=== PATIENT | female | born 1955 | race Hispanic/Latino ===

== ENCOUNTER → 2017-10-07 | Outpatient (CLI) | payer OTHER ==
[~2017-10-07] MED LIST: AMLO10TA2 PO; ASPI-1181 PO; AZIT250T9 PO; FERR324T4 PO; FURO40TA5 PO; GLIP10TA9 PO; HYDR-2132 PO; HYDR-4154 PO; LEVO50TA11 PO; LOSA100T29 PO; LOSA1TAB37 PO; METF10004 PO; NIAC500T76 PO; OSEL75CA17 PO; PANT40TA25 PO; REGADENOSON 0.4 MG/5 ML PF SYG IVP SCH; RIVA10TA PO; SIMV20TA6 PO; SITA100T12 PO; VITAMIN B12 SL; [UNRECOGNIZED DRUG - CODE] PO
== END | disposition home or self-care (01) ==
LOC: SHCH 08:46
PROVIDERS: ATTEND Internal Medicine Cardiovascular Disease
DX: I25.10 Atherosclerotic heart disease of native coronary artery without angina pectoris (principal)
CPT/HCPCS: 78452; 93017; 96374; A9500 ×2; J2785

== ENCOUNTER → 2017-10-18 | Outpatient (CLI) | payer OTHER ==
[~2017-10-18] MED LIST changes: -REGADENOSON 0.4 MG/5 ML PF SYG IVP SCH
== END | disposition home or self-care (01) ==
LOC: RAH 13:27
PROVIDERS: ATTEND Internal Medicine Cardiovascular Disease
DX: I51.7 Cardiomegaly (principal); M47.895 Other spondylosis, thoracolumbar region; R91.8 Other nonspecific abnormal finding of lung field
CPT/HCPCS: 71046; 78579; 78580; A9540; A9558

== ENCOUNTER 2018-01-02 22:35 | Emergency (ER) | payer OTHER ==
[~2018-01-02 22:35] MED LIST changes: -AMLO10TA2 PO; -ASPI-1181 PO; -AZIT250T9 PO; -FERR324T4 PO; -FURO40TA5 PO; -HYDR-4154 PO; -LEVO50TA11 PO; -LOSA100T29 PO; -OSEL75CA17 PO; -PANT40TA25 PO; -VITAMIN B12 SL
[2018-01-02 23:04] LABS: APPEARANCE,URINE Cloudy (CLEAR); BILIRUBIN,URINE Negative (NEGATIVE); COLOR,URINE Yellow (YELLOW); GLUCOSE, URINE (UA) 250 mg/dL (NEGATIVE); KETONES,URINE Negative (NEGATIVE); LEUKOCYTE ESTERASE ,URINE Trace (NEGATIVE); NITRATE,URINE Negative (NEGATIVE); OCCULT BLOOD,URINE Moderate (NEGATIVE); PH,URINE 6.5 (5.0-8.0); PROTEIN,URINE >=1000 (NEGATIVE)
[2018-01-02 23:15] LABS: BACTERIA,URINE Moderate /HPF (None Seen); MUCUS,URINE Moderate LPF (None Seen); SQUAMOUS EPITHELIAL CELL,UR Many /HPF (0-2)
[2018-01-02 23:16] LABS: AMORPHOUS SEDIMENT,UR Moderate /LPF (None Seen); CALCIUM OXALATE CRYSTALS,UR Rare /LPF (None Seen)
[2018-01-02] MEDS ORDERED: OSELTAMIVIR PHOSPHATE 75 MG CAP ONE (23:23)
== END 2018-01-02 23:33 | disposition home or self-care (01) ==
LOC: EDH 22:35
DX: J10.1 Influenza due to other identified influenza virus with other respiratory manifestations (principal); R50.81 Fever presenting with conditions classified elsewhere; I10 Essential (primary) hypertension; E11.9 Type 2 diabetes mellitus without complications; I25.10 Atherosclerotic heart disease of native coronary artery without angina pectoris; E78.5 Hyperlipidemia, unspecified; Z91.041 Radiographic dye allergy status
CPT/HCPCS: 81001; 87804; 87880

== ENCOUNTER 2018-01-04 07:00 | Emergency (ER) | payer OTHER ==
[2018-01-04] MEDS ORDERED: DEXAMETHASONE SOD PHOSPHATE 10MG/ML 1ML VIAL ONE (07:21)
[2018-01-04] MEDS ORDERED: LIDOCAINE HCL-MPF 1% 2ML VIAL ONE (07:21)
[2018-01-04] MEDS ORDERED: CEFTRIAXONE SODIUM 1 GM ONE (07:22)
[2018-01-04] MEDS ORDERED: IPRATROPIUM/ALBUTEROL SULFATE 3 ML SOLUTION IH ONE (07:31)
== END 2018-01-04 08:36 | disposition home or self-care (01) ==
LOC: EDH 07:00
DX: J20.9 Acute bronchitis, unspecified (principal); J10.1 Influenza due to other identified influenza virus with other respiratory manifestations; I10 Essential (primary) hypertension; D64.9 Anemia, unspecified; I25.10 Atherosclerotic heart disease of native coronary artery without angina pectoris; E78.5 Hyperlipidemia, unspecified; Z98.890 Other specified postprocedural states; Z88.8 Allergy status to other drugs, medicaments and biological substances
CPT/HCPCS: 71046; 94640; 96372 ×2; 99284; J0696; J1100; J3490

== ENCOUNTER 2018-01-06 19:36 | Inpatient (IN) | payer OTHER ==
[~2018-01-06] VITALS: Ht 154.9 cm; Wt 110.7 kg
[2018-01-06 20:21] LABS: BASOPHILS % (AUTO) 0.4 % (0.0-5.0); EOSINOPHILS % (AUTO) 1.7 % (0.0-8.0); HEMATOCRIT 26.5 % (36-48); LYMPHOCYTES % (AUTO) 21.5 % (21.0-51.0); MEAN CORPUSCULAR HEMOGLOBIN 28.7 pg (27.0-33.0); MEAN CORPUSCULAR HGB CONC 35.2 g/dL (32.0-36.0); MEAN CORPUSCULAR VOLUME 81.6 fL (79-99); MONOCYTES % (AUTO) 9.5 % (3.0-13.0); NEUTROPHILS % (AUTO) 66.9 % (40.0-77.0); NUCLEATED RED BLOOD CELLS 0.1 % (0.0-0.19); PLATELET COUNT (AUTO) 225 K/uL (130-400); RED BLOOD CELL COUNT(AUTO) 3.25 MIL/uL (4.00-5.50); RED CELL DISTRIBUTION WIDTH 16.9 % (11.0-15.5); WHITE BLOOD COUNT (AUTO) 8.7 K/uL (4.8-10.8)
[2018-01-06 20:26] LABS: APPEARANCE,URINE Clear (CLEAR); BILIRUBIN,URINE Negative (NEGATIVE); COLOR,URINE Yellow (YELLOW); GLUCOSE, URINE (UA) 500 mg/dL (NEGATIVE); KETONES,URINE Negative (NEGATIVE); LEUKOCYTE ESTERASE ,URINE Negative (NEGATIVE); NITRATE,URINE Negative (NEGATIVE); OCCULT BLOOD,URINE Trace (NEGATIVE); PROTEIN,URINE >=1000 (NEGATIVE); UROBILINOGEN,URINE 0.2 mg/dL (0.2-1.0)
[2018-01-06 20:34] LABS: CREATININE 2.5 mg/dL (0.5-1.5); POTASSIUM 3.9 mmol/L (3.5-5.1)
[2018-01-06 20:38] LABS: ALBUMIN 2.8 g/dL (3.5-5.0); BILIRUBIN,TOTAL 0.2 mg/dL (0.2-1.0); TOTAL PROTEIN, SERUM 7.9 g/dL (6.0-8.3)
[2018-01-06 20:46] LABS: AMYLASE 46 U/L (25-115); LIPASE 166 U/L (114-286)
[2018-01-06 20:51] LABS: BACTERIA,URINE Few /HPF (None Seen); SQUAMOUS EPITHELIAL CELL,UR 0-2 /HPF (0-2)
[2018-01-07] VITALS (7 sets, daily range): BP systolic 146–179; BP diastolic 59–83
[2018-01-07] MEDS ORDERED: METHYLPREDNISOLONE SOD SUCC 125MG/2ML VIAL ONE (00:37)
[2018-01-07] MEDS ORDERED: HYDRALAZINE HCL 20 MG/ML VIAL IV PRN (00:45)
[2018-01-07] MEDS: INSULIN HUMULIN R 100 UNIT/ML 3ML SQ SCH ×4 (00:45→18:45)
[2018-01-07] MEDS: METHYLPREDNISOLONE SOD SUCC 125MG/2ML VIAL IV SCH (00:45)
[2018-01-07] MEDS ORDERED: ONDANSETRON HCL 4 MG/2 ML VIAL IV PRN (00:45)
[2018-01-07] MEDS ORDERED: MORPHINE SULFATE 2 MG/ML 1ML SYG IV PRN (00:45)
[2018-01-07] MEDS ORDERED: FERR324T4 PO (01:28)
[2018-01-07] MEDS ORDERED: LEVO50TA11 PO (01:28)
[2018-01-07] MEDS ORDERED: OSEL75CA17 PO (01:28)
[2018-01-07] MEDS ORDERED: LOSA100T29 PO (01:28)
[2018-01-07] MEDS ORDERED: AZIT250T9 PO (01:28)
[2018-01-07] MEDS ORDERED: FURO40TA5 PO (01:28)
[2018-01-07] MEDS ORDERED: AMLO10TA2 PO (01:32)
[2018-01-07] MEDS ORDERED: ASPI-1181 PO (01:32)
[2018-01-07] MEDS ORDERED: HYDR-4154 PO (01:35)
[2018-01-07] MEDS ORDERED: PANT40TA25 PO (01:35)
[2018-01-07] MEDS ORDERED: VITAMIN B12 SL (01:38)
[2018-01-07] MEDS: SODIUM CHLORIDE 0.9% 1000ML 1,000 ML IV SCH ×2 (03:07→09:52)
[2018-01-07] MEDS: LEVOFLOXACIN 500 MG/D5W 100 ML 100 ML IV SCH (03:08)
[2018-01-07] MEDS: IPRATROPIUM/ALBUTEROL SULFATE 3 ML SOLUTION IH SCH ×3 (06:28→18:43)
[2018-01-07] MEDS ORDERED: METHYLPREDNISOLONE SOD SUCC 125MG/2ML VIAL IVP SCH (08:00)
[2018-01-07] MEDS ORDERED: PANTOPRAZOLE 40 MG/VIAL IVP SCH (09:00)
[2018-01-07] MEDS: CYANOCOBALAMIN (VITAMIN B-12) 1,000 MCG TABLET PO SCH (09:45)
[2018-01-07] MEDS ORDERED: COMPOUND PO MISCELLANEOUS 1 EACH MISC MISC PRN (09:45)
[2018-01-07] MEDS: LINAGLIPTIN 5 MG TABLET PO SCH (09:45)
[2018-01-07] MEDS: AMLODIPINE BESYLATE 5 MG TAB PO SCH (09:45)
[2018-01-07 09:50] LABS: HEMATOCRIT 28.4 % (36-48); MEAN CORPUSCULAR HEMOGLOBIN 27.4 pg (27.0-33.0); MEAN CORPUSCULAR HGB CONC 33.7 g/dL (32.0-36.0); MEAN CORPUSCULAR VOLUME 81.2 fL (79-99); PLATELET COUNT (AUTO) 204 K/uL (130-400); RED CELL DISTRIBUTION WIDTH 17.1 % (11.0-15.5); WHITE BLOOD COUNT (AUTO) 4.8 K/uL (4.8-10.8)
[2018-01-07 10:00] LABS: CREATININE 2.4 mg/dL (0.5-1.5); POTASSIUM 4.6 mmol/L (3.5-5.1)
[2018-01-07] MEDS: FERROUS SULFATE 325 MG TABLET.DR PO SCH (21:00)
[2018-01-07] MEDS ORDERED: OSELTAMIVIR PHOSPHATE 75 MG CAP PO SCH (21:00)
[2018-01-07] MEDS: HYDRALAZINE HCL 25 MG TABLET PO SCH (21:00)
[2018-01-08] MEDS: IPRATROPIUM/ALBUTEROL SULFATE 3 ML SOLUTION IH SCH ×4 (00:05→18:23)
[2018-01-08] MEDS: METHYLPREDNISOLONE SOD SUCC 125MG/2ML VIAL IV SCH (00:45)
[2018-01-08] MEDS: INSULIN HUMULIN R 100 UNIT/ML 3ML SQ SCH ×4 (00:45→16:36)
[2018-01-08] MEDS: LEVOFLOXACIN 500 MG/D5W 100 ML 100 ML IV SCH (00:49)
[2018-01-08 04:00] VITALS: BP 155/78
[2018-01-08] MEDS: SODIUM CHLORIDE 0.9% 1000ML 1,000 ML IV SCH (07:39)
[2018-01-08 08:23] VITALS: BP 150/74
[2018-01-08] MEDS ORDERED: AZITHROMYCIN 250 MG TABLET PO SCH (09:00)
[2018-01-08] MEDS ORDERED: OSELTAMIVIR SUSP 15 MG/ML (6 CAPS/29ML) PO SCH ×2 (09:00)
[2018-01-08 11:45] VITALS: BP 140/65
[2018-01-08 15:29] VITALS: BP 155/59
[2018-01-08] MEDS: LINAGLIPTIN 5 MG TABLET PO SCH (16:24)
[2018-01-08] MEDS: FERROUS SULFATE 325 MG TABLET.DR PO SCH ×2 (16:24→20:41)
[2018-01-08] MEDS: LEVOTHYROXINE 50 MCG TABLET PO SCH (16:25)
[2018-01-08] MEDS: PANTOPRAZOLE SODIUM 40 MG TABLET.DR PO SCH (16:25)
[2018-01-08] MEDS: CYANOCOBALAMIN (VITAMIN B-12) 1,000 MCG TABLET PO SCH (16:25)
[2018-01-08] MEDS: FUROSEMIDE 40 MG TABLET PO SCH (16:25)
[2018-01-08] MEDS: AMLODIPINE BESYLATE 5 MG TAB PO SCH (16:25)
[2018-01-08] MEDS: LOSARTAN 100 MG TABLET PO SCH (16:25)
[2018-01-08] MEDS: HYDRALAZINE HCL 25 MG TABLET PO SCH ×2 (16:26→20:41)
[2018-01-08] MEDS: ASPIRIN 81 MG EC TAB PO SCH (16:26)
[2018-01-08 19:51] VITALS: BP 137/80
[2018-01-08] MEDS ORDERED: PHARMACY COMMUNICATION MISC SCH (20:45)
[2018-01-08] MEDS: INSULIN R PO SS1 SQ SCH (21:00)
[2018-01-08 23:26] VITALS: BP 140/78
[2018-01-09] MEDS: LEVOFLOXACIN 500 MG/D5W 100 ML 100 ML IV SCH (00:46)
[2018-01-09] MEDS: IPRATROPIUM/ALBUTEROL SULFATE 3 ML SOLUTION IH SCH ×5 (01:23→23:01)
[2018-01-09 04:24] VITALS: BP 142/60
[2018-01-09] MEDS: INSULIN R PO SS1 SQ SCH ×4 (05:50→20:32)
[2018-01-09 07:59] VITALS: BP 137/64
[2018-01-09] MEDS: HYDRALAZINE HCL 25 MG TABLET PO SCH ×2 (10:19→20:10)
[2018-01-09] MEDS: CYANOCOBALAMIN (VITAMIN B-12) 1,000 MCG TABLET PO SCH (10:20)
[2018-01-09] MEDS: FERROUS SULFATE 325 MG TABLET.DR PO SCH ×2 (10:20→20:10)
[2018-01-09] MEDS: LINAGLIPTIN 5 MG TABLET PO SCH (10:20)
[2018-01-09] MEDS: PANTOPRAZOLE SODIUM 40 MG TABLET.DR PO SCH (10:20)
[2018-01-09] MEDS: AMLODIPINE BESYLATE 5 MG TAB PO SCH (10:20)
[2018-01-09] MEDS: FUROSEMIDE 40 MG TABLET PO SCH (10:20)
[2018-01-09] MEDS: LOSARTAN 100 MG TABLET PO SCH (10:20)
[2018-01-09] MEDS: ASPIRIN 81 MG EC TAB PO SCH (10:20)
[2018-01-09] MEDS: LEVOTHYROXINE 50 MCG TABLET PO SCH (10:21)
[2018-01-09 10:37] LABS: HEMATOCRIT 27.9 % (36-48); MEAN CORPUSCULAR HEMOGLOBIN 27.7 pg (27.0-33.0); MEAN CORPUSCULAR HGB CONC 33.9 g/dL (32.0-36.0); MEAN CORPUSCULAR VOLUME 81.7 fL (79-99); PLATELET COUNT (AUTO) 228 K/uL (130-400); RED BLOOD CELL COUNT(AUTO) 3.41 MIL/uL (4.00-5.50); RED CELL DISTRIBUTION WIDTH 16.7 % (11.0-15.5); WHITE BLOOD COUNT (AUTO) 8.3 K/uL (4.8-10.8)
[2018-01-09 11:06] VITALS: BP 156/83
[2018-01-09 16:23] VITALS: BP 146/69
[2018-01-09 19:40] VITALS: BP 146/75
[2018-01-10] VITALS (22 sets, daily range): BP systolic 92–179; BP diastolic 54–88
[2018-01-10] MEDS: LEVOFLOXACIN 500 MG/D5W 100 ML 100 ML IV SCH (00:04)
[2018-01-10] MEDS: SODIUM CHLORIDE 0.9% 1000ML 1,000 ML IV SCH ×2 (00:04→14:08)
[2018-01-10] MEDS: IPRATROPIUM/ALBUTEROL SULFATE 3 ML SOLUTION IH SCH ×4 (06:22→23:22)
[2018-01-10] MEDS: INSULIN R PO SS1 SQ SCH ×4 (06:54→22:07)
[2018-01-10] MEDS: FERROUS SULFATE 325 MG TABLET.DR PO SCH ×2 (09:00→22:09)
[2018-01-10] MEDS: PANTOPRAZOLE SODIUM 40 MG TABLET.DR PO SCH (09:00)
[2018-01-10] MEDS: AMLODIPINE BESYLATE 5 MG TAB PO SCH (09:00)
[2018-01-10] MEDS: FUROSEMIDE 40 MG TABLET PO SCH (09:00)
[2018-01-10] MEDS: LINAGLIPTIN 5 MG TABLET PO SCH (09:00)
[2018-01-10] MEDS: HYDRALAZINE HCL 25 MG TABLET PO SCH ×2 (09:00→22:09)
[2018-01-10] MEDS: CYANOCOBALAMIN (VITAMIN B-12) 1,000 MCG TABLET PO SCH (09:00)
[2018-01-10] MEDS: LOSARTAN 100 MG TABLET PO SCH (09:00)
[2018-01-10] MEDS: LEVOTHYROXINE 50 MCG TABLET PO SCH (09:00)
[2018-01-10] MEDS: ASPIRIN 81 MG EC TAB PO SCH (09:00)
[2018-01-10] MEDS ORDERED: GLYCOPYRROLATE 0.2 MG/ML 5 ML VIAL ONE (14:16)
[2018-01-10] MEDS ORDERED: LIDOCAINE PF 2% 5ML ABBOJECT ONE (14:16)
[2018-01-10] MEDS ORDERED: DEXAMETHASONE SOD PHOSPHATE 10MG/ML 1ML VIAL ONE (14:16)
[2018-01-10] MEDS ORDERED: MIDAZOLAM HCL 1 MG/ML 2ML VIAL ONE (14:17)
[2018-01-10] MEDS ORDERED: PROPOFOL 10 MG/ML 20ML VIAL IV ONE (14:17)
[2018-01-10] MEDS ORDERED: FENTANYL CITRATE PF 50 MCG/1 ML 2ML VIAL ONE (14:18)
[2018-01-10] MEDS ORDERED: BUPIVACAINE/EPI/PF 0.25% 30ML VIAL IJ ONE (14:50)
[2018-01-10] MEDS ORDERED: MEPERIDINE-PF 25 MG/ML SYG ONE (16:50)
[2018-01-11 00:15] VITALS: BP 154/68
[2018-01-11 04:15] VITALS: BP 156/76
[2018-01-11] MEDS: IPRATROPIUM/ALBUTEROL SULFATE 3 ML SOLUTION IH SCH ×2 (06:34→11:14)
[2018-01-11] MEDS: INSULIN R PO SS1 SQ SCH ×2 (06:43→11:30)
[2018-01-11 08:32] VITALS: BP 174/83
[2018-01-11] MEDS: FUROSEMIDE 40 MG TABLET PO SCH (09:12)
[2018-01-11] MEDS: LOSARTAN 100 MG TABLET PO SCH (09:12)
[2018-01-11] MEDS: AMLODIPINE BESYLATE 5 MG TAB PO SCH (09:12)
[2018-01-11] MEDS: LINAGLIPTIN 5 MG TABLET PO SCH (09:12)
[2018-01-11] MEDS: LEVOTHYROXINE 50 MCG TABLET PO SCH (09:13)
[2018-01-11] MEDS: FERROUS SULFATE 325 MG TABLET.DR PO SCH (09:13)
[2018-01-11] MEDS: PANTOPRAZOLE SODIUM 40 MG TABLET.DR PO SCH (09:13)
[2018-01-11] MEDS: HYDRALAZINE HCL 25 MG TABLET PO SCH (09:13)
[2018-01-11] MEDS: ASPIRIN 81 MG EC TAB PO SCH (09:13)
[2018-01-11] MEDS: CYANOCOBALAMIN (VITAMIN B-12) 1,000 MCG TABLET PO SCH (09:13)
[2018-01-11 12:00] VITALS: BP 161/86
[2018-01-11] MEDS: SODIUM CHLORIDE 0.9% 1000ML 1,000 ML IV SCH (16:01)
== END 2018-01-11 17:00 | disposition home or self-care (01) | DRG 336 ==
LOC: EDH 19:36 → EDHIP 23:14 → 3AH 01-07 00:47
PROVIDERS: ADMIT Internal Medicine; ATTEND Internal Medicine
PROC: 0DN80ZZ Release Small Intestine, Open Approach (ICD-10-PCS; principal; 2018-01-10 14:31)
DX: K56.699 Other intestinal obstruction unspecified as to partial versus complete obstruction (principal); N17.9 Acute kidney failure, unspecified; N18.3 Chronic kidney disease, stage 3 (moderate); E11.21 Type 2 diabetes mellitus with diabetic nephropathy; E11.22 Type 2 diabetes mellitus with diabetic chronic kidney disease; K66.0 Peritoneal adhesions (postprocedural) (postinfection); E03.9 Hypothyroidism, unspecified; J40 Bronchitis, not specified as acute or chronic; E78.5 Hyperlipidemia, unspecified; I12.9 Hypertensive chronic kidney disease with stage 1 through stage 4 chronic kidney disease, or unspecified chronic kidney disease; D17.9 Benign lipomatous neoplasm, unspecified; Z96.652 Presence of left artificial knee joint; Z83.3 Family history of diabetes mellitus; Z82.49 Family history of ischemic heart disease and other diseases of the circulatory system
CPT/HCPCS: 36415; 71045; 74176; 80048; 80053; 81001; 82150; 82948; 83690; 85025; 85027; 94640; 94664; A4606; C9113; J1100; J1815; J1956; J2001; J2175; J2250; J2704; J2930; J3010; J3490; J7030

== ENCOUNTER → 2023-05-20 | Outpatient (CLI) | payer MEDICARE ==
[~2023-05-20] MED LIST changes: +AMLO-258 PO; +ASPI-1443 PO; +AZIT250T9 PO; +FERR324T4 PO; +FURO40TA5 PO; -GLIP10TA9 PO; -HYDR-2132 PO; +HYDR-4154 PO; +LEVO50TA11 PO; +LOSA100T59 PO; -LOSA1TAB37 PO; -METF10004 PO; -NIAC500T76 PO; +PANT40TA54 PO; -RIVA10TA PO; -SIMV20TA6 PO; +VITAMIN B12 SL; -[UNRECOGNIZED DRUG - CODE] PO
[2023-05-20 16:36] LABS: CHOLESTEROL 182 mg/dL (<200); HDL CHOLESTEROL 56 mg/dL (35-85); LDL DIRECT 99 mg/dL (0-99); TRIGLYCERIDES 148 mg/dL (30-200)
== END | disposition home or self-care (01) ==
LOC: LAB 15:02
PROVIDERS: ATTEND Internal Medicine Cardiovascular Disease
DX: I10 Essential (primary) hypertension (principal)
CPT/HCPCS: 36415; 80061